=== PATIENT | male | born 1955 | race Caucasian/White ===

== ENCOUNTER 2022-03-14 15:28 | Emergency (ER) | payer SELFPAY ==
[~2022-03-14] VITALS: Ht 167.6 cm; Wt 77.1 kg
--- NOTE | 2022-03-14 16:00 | NUR ---
Pt arrived [facility] with c/o ETOH. Pt was initially unresponsive, cool and clammy to touch. ordered Narcan stat for the pt.
[2022-03-14 16:51] LABS: HEMATOCRIT 46.6 % (36.7-47.1); MEAN CORPUSCULAR HEMOGLOBIN 33.5 uug (23.8-33.4); MEAN CORPUSCULAR VOLUME 100.3 fL (73.0-96.2); PLATELET COUNT (AUTO) 289 K/uL (152-348)
[2022-03-14 16:56] LABS: CARBON DIOXIDE 26 mmol/L (21-32); CHLORIDE 101 mmol/L (98-107); CREATININE 1.1 mg/dL (0.6-1.3); GLUCOSE 213 mg/dL (74-106); POTASSIUM 3.2 mmol/L (3.5-5.1); UREA NITROGEN, BLOOD 8 mg/dL (7-18)
[2022-03-14 17:02] LABS: ETHANOL 42 MG/DL (0-0)
[2022-03-14 17:03] LABS: ALANINE AMINOTRANSFERASE 37 U/L (16-63); ALKALINE PHOSPHATASE 80 U/L (50-136); ASPARTATE AMINOTRANSFERASE 79 U/L (15-37); BILIRUBIN,DIRECT 0.2 mg/dL (0.0-0.2); BILIRUBIN,TOTAL 0.7 mg/dL (0.2-1.0); TOTAL PROTEIN, SERUM 8.4 g/dL (6.4-8.2)
[2022-03-14 17:04] LABS: ACETAMINOPHEN < 2.0 ug/mL (10-30)
[2022-03-14] MEDS ORDERED: NALO4SPR BNOSTRILS (18:27)
[2022-03-14] MEDS ORDERED: NALOXONE HCL 0.4 MG/ML AMPUL IV ONE (18:30)
[2022-03-14] MEDS ORDERED: NALOXONE 2 MG/2 ML SYRINGE ONE (18:39)
--- NOTE | 2022-03-14 18:59 | NUR ---
Endorsed to Veronica JOHANSEN.
--- NOTE | 2022-03-14 19:34 | NUR ---
patient is calm and cooperative
[2022-03-14 23:50] LABS: *BLOOD, URINE NEGATIVE (NEGATIVE); *CLARITY,URINE CLEAR (CLEAR); *KETONES,URINE 1+ (NEGATIVE); LEUKOCYTE ESTERASE ,URINE NEGATIVE (NEGATIVE); NITRITE, URINE NEGATIVE (NEGATIVE); PH,URINE 5.5 (5.0-8.0); UGLUCOSE TRACE (NEGATIVE)
[2022-03-14 23:53] LABS: *BILIRUBIN,URIN 1+ (NEGATIVE); *COLOR,URINE HAZY (YELLOW)
[2022-03-14 23:58] LABS: *AMPHETAMINE, URINE POSITIVE (NEGATIVE); *CANNABINOID, URINE NEGATIVE (NEGATIVE); *COCCAINE, URINE NEGATIVE (NEGATIVE); *OPIATE, URINE NEGATIVE (NEGATIVE); *PHENCYCLIDINE SCREEN,URINE NEGATIVE (NEGATIVE)
[2022-03-15] MEDS ORDERED: POTASSIUM CHLORIDE 20 MEQ TAB.PRT.SR PO ONE (02:45)
[2022-03-15] MEDS ORDERED: POTASSIUM CHLORIDE 20 MEQ TAB.PRT.SR ONE (03:02)
--- NOTE | 2022-03-15 07:05 | NUR ---
Received endorsement from Veronica PIERSON
--- NOTE | 2022-03-15 07:15 | NUR ---
ENDORSED TO TOM JOHANSEN
--- NOTE | 2022-03-15 07:35 | NUR ---
Patient discharged to home in stable condition. Written and verbal after care instructions given. Patient verbalizes understanding of instructions. Stressed follow up or return to ER for worsening s/s.
[2022-03-15 07:54] VITALS: BP 124/76
== END 2022-03-15 07:35 | disposition home or self-care (01) ==
LOC: ER 15:28
DX: T40.601A Poisoning by unspecified narcotics, accidental (unintentional), initial encounter (principal); G92.8 Other toxic encephalopathy; Y92.480 Sidewalk as the place of occurrence of the external cause; E87.6 Hypokalemia; R42 Dizziness and giddiness; G93.89 Other specified disorders of brain; D72.829 Elevated white blood cell count, unspecified
CPT/HCPCS: 80076; 80048; 81003; 85025; 36415; 70450; 99291; 96374; 80299; 80320; 80307; J2310; A4663; G0480